=== PATIENT | female | born 1935 | race Caucasian/White ===

== ENCOUNTER 2017-03-03 19:04 | Emergency (ER) | payer MEDICARE, BC ==
[2017-03-03] MEDS ORDERED: Morphine 10 MG/ML Syringe IM ONE (20:09)
[2017-03-03] MEDS ORDERED: Morphine 10 MG/ML Syringe ONE (20:16)
[2017-03-03] MEDS ORDERED: Morphine 10 MG/ML Syringe IVPUSH ONE (20:32)
[2017-03-03] MEDS ORDERED: Acetaminophen/HYDROcodone 325-5 MG Tab ONE (21:30)
[2017-03-04 02:00] VITALS: BP 124/83
--- NOTE | 2017-03-04 08:36 | ER ---
HISTORY OF PRESENT ILLNESS: An 82-year-old lady, here with her . The patient fell in their kitchen and she sustained a left wrist injury. There was no bleeding, but they noticed an obvious deformity to the shape of the wrist. They wrapped her wrist is a towel with an ice pack and brought her in for evaluation. The patient states her pain is better now than it was before. She rates it at about a 5 on a 10 scale. She denies any other injuries. CURRENT MEDICATIONS: Reviewed. That include warfarin, sertraline, potassium, metoprolol, hydrochlorothiazide, and furosemide. ALLERGIES: NONE. OBJECTIVE: GENERAL APPEARANCE: The patient is awake and alert. She is in no significant distress. VITAL SIGNS: Reviewed. Blood pressure 122/83. EXTREMITIES: Examining the left wrist reveals an obvious deformity of the wrist. Skin is intact. There is some bruising on the palmar side of the wrist area, just proximal to the hand. The hand itself has good color. The patient can open and close the fingers of her hand. Hand is warm and dry. LAB AND X-RAY: X-rays were obtained, showing a distal radial fracture with significant angulation in a downward direction. There is a distal ulna fracture as well that appears to be displaced. DIAGNOSIS: Wrist fracture. TREATMENT PLAN: I did consult with Dr. Espinosa, orthopedic doctor from [place], who reviewed the x-rays with the following recommendation: The area should be reduced, after which it should be put in a splint, pain medicine should be given accordingly, and the patient needs to be taken to [facility] tomorrow morning to see Ortho for further evaluation and possible surgery. An IV was started. Morphine 5 mg was given IV. This made the patient a little bit sleepy, after which I injected 1% lidocaine locally, just proximal to the injured area, going all the way around the patient's distal forearm, injecting it subcutaneously. We then put the patient's hand in a finger trap, and with the patient's hand in the finger trap , I pulled down gently as well as applying pressure on the palmar side of the wrist and I was able to regain fairly good alignment. The patient had some discomfort during this procedure, but stated it felt better right after. We then put the patient in a gutter splint with her fingers still in the finger trap, after which we released it. We monitored the patient for about 15 minutes. The wrist maintained fairly good alignment, much better than when she came in. At this point, the patient will be discharged. She was put in a sling. She was given hydrocodone. She is to take 1 tablet every 4 hours as needed. They can continue icing her wrist as often as it is possible over the course of the night and she is to take her pain medicine regularly. She is to be n.p.o. after midnight other than a swallow of water to take her pain pill as well as her other pills in the morning. The patient is to not take her Coumadin at this time until her primary provider recommends that she resumes using Coumadin. She usually takes it in the evening. She has not taken it this evening. Color of the patient's fingers remains good, and they remain warm. There is no numbness present. The patient is here with family members. They will take her to [facility] [place] tomorrow morning to the [facility]. Dr. Espinosa has made arrangements for her to see his mid- level initially since he will not be there tomorrow, but arrangements will be made to take care of the patient through his mid-level. ANSELMO/GOVIND /[id number] MAICOL
--- NOTE | 2017-03-04 09:54 | CR ---
DATE OF SERVICE: 03/03/17 CLINICAL DATA: Injury. LEFT WRIST: There is a comminuted fracture through the distal radial diametaphysis. There is significant dorsal angulation of the distal fragments with respect to the proximal. There is also a comminuted, displaced fracture through the distal ulna with greater than 2 cm dorsal displacement of the distal fragments with respect to the proximal. There is diffuse osteopenia. There are osteoarthritic changes involving multiple joints. No other acute abnormalities. [id number] [facility]
== END 2017-03-03 21:40 | disposition home or self-care (01) ==
LOC: LB.ED 19:04
DX: S52.602A Unspecified fracture of lower end of left ulna, initial encounter for closed fracture (principal); S52.502A Unspecified fracture of the lower end of left radius, initial encounter for closed fracture; W19.XXXA Unspecified fall, initial encounter; Y92.89 Other specified places as the place of occurrence of the external cause
CPT/HCPCS: 25605; 73100; 96372; 99283; A9270; J2270; 29125

== ENCOUNTER 2018-11-11 19:59 | Emergency (ER) | payer MEDICARE ==
[2018-11-11 20:16] VITALS: BP 121/76
--- NOTE | 2018-11-11 20:17 | EDM.PDOC ---
ED HPI GENERAL MEDICAL PROBLEM - General Chief Complaint: Respiratory Problem Stated Complaint: COUGHING Time Seen by Provider: 11/11/18 20:00 Source of Information: Reports: Patient History Limitations: Reports: No Limitations - History of Present Illness INITIAL COMMENTS - FREE TEXT/NARRATIVE: According to patient she was seen last for cough and diagnosed with pneumonia by Dr. Paulson. She was started on Levaquin and Tessalon pearls. Pt is here as her cough as got worse. Has been getting clear sputum , but had some blood in it , hence got concerned. No fever or chills. No wheezing or shortness of breath. No loss of appetite. No abdominal pain. C/o chest pain along the costal margins from coughing. Onset Date: 11/09/18 Duration: Day(s): (3) Location: Reports: Chest Quality: Reports: Other (cough) Improves with: Reports: None Worsens with: Reports: None Associated Symptoms: Reports: Chest Pain, Cough. Denies: Confusion, Diaphoresis , Fever/Chills, Headaches, Nausea/Vomiting, Rash, Seizure, Shortness of Breath, Syncope, Weakness - Related Data Allergies Allergy/AdvReac Type Severity Reaction Status Date / Time No Known Allergies Allergy Verified 11/11/18 20:16 Home Meds: Home Meds Furosemide 03/03/17 [History] Metoprolol Tartrate 03/03/17 [History] Potassium Chloride 20 meq PO 03/03/17 [History] Sertraline HCl 03/03/17 [History] Warfarin Sodium [Jantoven] 03/03/17 [History] hydroCHLOROthiazide [Hydrochlorothiazide] 03/03/17 [History] Past Medical History HEENT History: Reports: Impaired Vision Cardiovascular History: Reports: Afib Respiratory History: Reports: None Gastrointestinal History: Reports: None Genitourinary History: Reports: None 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: Musculoskeletal History: Reports: Fracture Other Musculoskeletal History: L hip fx years ago, L THANIA in 2013 removed old hardware, 2016 R THANIA, R TKA 2006 Neurological History: Reports: Other (See Below) 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 Psychiatric History: Reports: None Endocrine/Metabolic History: Reports: None Hematologic History: Reports: None Immunologic History: Reports: None Oncologic (Cancer) History: Reports: None Dermatologic History: Reports: None - Past Surgical History Head Surgeries/Procedures: Reports: None HEENT Surgical History: Reports: Cataract Surgery Respiratory Surgical History: Reports: None GI Surgical History: Reports: None Female Surgical History: Reports: None Musculoskeletal Surgical History: Reports: Hip Replacement, Knee Replacement Social & Family History - Family History Family Medical History: Unobtainable - Caffeine Use Caffeine Use: Reports: Coffee, Soda Caffeine Use Comment: once a day ED ROS GENERAL - Review of Systems Review Of Systems: See Below Constitutional: Denies: Fever, Chills HEENT: Denies: Rhinitis, Throat Pain, Throat Swelling Respiratory: Reports: Pleuritic Chest Pain, Cough, Sputum, Hemoptysis. Denies: Shortness of Breath, Wheezing Cardiovascular: Denies: Chest Pain, Lightheadedness GI/Abdominal: Denies: Abdominal Pain, Diarrhea, Nausea, Vomiting Musculoskeletal: Denies: Joint Pain, Joint Swelling Skin: Denies: Pruritis, Rash, Erythema Neurological: Denies: Confusion, Dizziness, Headache, Numbness, Tingling ED EXAM, GENERAL - Physical Exam Exam: See Below Exam Limited By: No Limitations General Appearance: Alert, WD/WN, No Apparent Distress Eye Exam: Bilateral Eye: EOMI, PERRL Ears: Normal External Exam, Normal Canal, Hearing Grossly Normal, Normal TMs Ear Exam: Bilateral Ear: Auricle Normal, Canal Normal, TM normal Nose: Normal Inspection, Normal Mucosa, No Blood Throat/Mouth: Normal Inspection, Normal Lips, Normal Teeth, Normal Gums, Normal Oropharynx, Normal Voice, No Airway Compromise Head: Atraumatic, Normocephalic Neck: Normal Inspection, Supple, Non-Tender, Full Range of Motion Respiratory/Chest: No Respiratory Distress, Lungs Clear, Normal Breath Sounds, No Accessory Muscle Use, Chest Non-Tender Cardiovascular: Normal Peripheral Pulses, Regular Rate, Rhythm, No Edema, No Gallop, No JVD, No Murmur, No Rub Extremities: Normal Inspection, Normal Range of Motion, Non-Tender, Normal Capillary Refill, No Pedal Edema Neurological: Alert, Oriented, CN II-XII Intact, Normal Cognition, Normal Gait, Normal Reflexes, No Motor/Sensory Deficits Skin Exam: Warm, Intact Course - Vital Signs Text/Narrative:: Pt's clinical exam appears normal. Her SPO2 is 99% on room air. Her CBC is normal. Chest X-ray shows increased vascular markings, the left lower lobe infiltrate is clearing. Pt reassured that cough is normal reflux of the respiratory system to clear the sputum.The cough will get worse before it gets better. Pt advised to continue Levaquin and Tessalon pearls, which should help thin the secretions. Steam inhalations 2-3 times daily. Humidification of room air.Cough should gradually improve. Specks of blood in the sputum is normal, as long as there is not kei bloody sputum or coughing up blood clots. Followup in the clinic next week for recheck. Last Recorded V/S: Last Vital Signs Temp 98.2 F 11/11/18 20:06 Pulse 120 H 11/11/18 20:06 Resp 20 11/11/18 20:06 BP 121/76 11/11/18 20:06 Pulse Ox 99 11/11/18 20:06 - Orders/Labs/Meds Orders: Active Orders 24 hr Category Date Time Status Chest 2V [CR] Stat Exams 11/11/18 20:02 Ordered Labs: Laboratory Tests 11/11/18 Range/Units 20:14 WBC 5.9 D (4.0-11.0) K/uL RBC 3.88 (3.80-5.80) M/uL Hgb 11.7 (11.5-16.5) g/dL Hct 36.2 L (37.0-47.0) % MCV 93 (76-96) fL MCH 30.2 (27.0-32.0) pg MCHC 32.3 (31.0-35.0) g/dL RDW 13.1 (11.0-16.0) % Plt Count 192 D (150-500) K/uL MPV 9.9 (6.0-10.0) fL Neut % (Auto) 66.3 (45.0-70.0) % Lymph % (Auto) 22.9 (20.0-40.0) % Wilkin % (Auto) 9.3 (3.0-10.0) % Eos % (Auto) 1.3 (1.0-5.0) % Baso % (Auto) 0.2 (0.0-0.5) % Neut # (Auto) 3.94 (2.00-7.50) K/uL Lymph # (Auto) 1.36 L (1.50-4.00) K/uL Wilkin # (Auto) 0.55 (0.20-0.80) K/uL Eos # (Auto) 0.08 (0.04-0.40) K/uL Baso # (Auto) 0.01 L (0.02-0.10) K/uL Departure - Departure Time of Disposition: 20:30 Disposition: Home, Self-Care 01 Condition: Fair Clinical Impression: Left lower lobe pneumonia - Discharge Information *PRESCRIPTION DRUG MONITORING PROGRAM REVIEWED*: Not Applicable *COPY OF PRESCRIPTION DRUG MONITORING REPORT IN PATIENT YAMILE: Not Applicable Forms: ED Department Discharge Additional Instructions: Labs and Chest xray are looking much better. Continue the regime that Dr. Paulson gave you and finish the antibiotics. Using a steamer with menthol can help as well. Boil water 2-3 times a day, add some vicks vapor rub in the hot water and breath in the vapors. - Problem List & Annotations (1) Left lower lobe pneumonia SNOMED Code(s): 837707342 Code(s): J18.1 - LOBAR PNEUMONIA, UNSPECIFIED ORGANISM Status: Acute - Problem List Review Problem List Initiated/Reviewed/Updated: Yes - My Orders Last 24 Hours: My Active Orders 11/11/18 20:02 Chest 2V [CR] Stat - Assessment/Plan Last 24 Hours: My Active Orders 11/11/18 20:02 Chest 2V [CR] Stat Assessment:: Left lower lobe pneumonia- improving Plan: Pt's clinical exam appears normal. Her SPO2 is 99% on room air. Her CBC is normal. Chest X-ray shows increased vascular markings, the left lower lobe infiltrate is clearing. Pt reassured that cough is normal reflux of the respiratory system to clear the sputum.The cough will get worse before it gets better. Pt advised to continue Levaquin and Tessalon pearls, which should help thin the secretions. Steam inhalations 2-3 times daily. Humidification of room air.Cough should gradually improve. Specks of blood in the sputum is normal, as long as there is not kei bloody sputum or coughing up blood clots. Followup in the clinic next week for recheck.
--- NOTE | 2018-11-12 20:03 | CR ---
DATE OF SERVICE: 11/11/2018 CLINICAL DATA: Cough with hemoptysis. PA AND LATERAL CHEST: Comparison is made to a prior exam dated 11/08/2018. The nodular density in the left lung base on the prior exam has resolved. The exam is otherwise unchanged. No new abnormalities. No evidence of acute intrathoracic disease. [id number] [facility]
== END 2018-11-11 20:30 | disposition home or self-care (01) ==
LOC: LB.ED 19:59
DX: J18.1 Lobar pneumonia, unspecified organism (principal); I48.91 Unspecified atrial fibrillation; Z79.899 Other long term (current) drug therapy
CPT/HCPCS: 36415; 71046; 85025; 99285-25

== ENCOUNTER 2021-02-08 03:53 | Emergency (ER) | payer MEDICARE, BC ==
[2021-02-08 04:49] VITALS: BP 131/75; PULSE 58
--- NOTE | 2021-02-08 04:54 | EDM.PDOC ---
ED HPI GENERAL MEDICAL PROBLEM - General Chief Complaint: Gastrointestinal Problem Stated Complaint: DIARRHEA Time Seen by Provider: 02/08/21 04:53 Source of Information: Reports: Patient History Limitations: Reports: No Limitations - History of Present Illness INITIAL COMMENTS - FREE TEXT/NARRATIVE: patient presented to the ER due to persistent diarrhea for the last 1 day. reports a watery diarrhea every 2 hrs - loose and yellow in color no fever or chills no abdominal pain good appetite but she is concerned about getting dehydrated -since she is on diuretics as well and prone to dehydration Onset: Gradual Duration: Day(s): (4) Location: Reports: Abdomen - Related Data Allergies Allergy/AdvReac Type Severity Reaction Status Date / Time No Known Allergies Allergy Verified 02/08/21 04:46 Home Meds: Home Meds Furosemide 03/03/17 [History] Metoprolol Tartrate 03/03/17 [History] Potassium Chloride 20 meq PO 03/03/17 [History] Sertraline HCl 03/03/17 [History] Warfarin Sodium [Jantoven] 03/03/17 [History] hydroCHLOROthiazide [Hydrochlorothiazide] 03/03/17 [History] metroNIDAZOLE [Flagyl] 500 mg PO Q12H #6 tab 02/08/21 [Rx] Past Medical History HEENT History: Reports: Impaired Vision Cardiovascular History: Reports: Afib Respiratory History: Reports: None Gastrointestinal History: Reports: None Genitourinary History: Reports: None [employer]IE[employer] History: Reports: Musculoskeletal History: Reports: Fracture Other Musculoskeletal History: L hip fx years ago, L THANIA in 2013 removed old hardware, 2016 R THANIA, R TKA 2005 Neurological History: Reports: Other (See Below) 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 Psychiatric History: Reports: None Endocrine/Metabolic History: Reports: None Hematologic History: Reports: None Immunologic History: Reports: None Oncologic (Cancer) History: Reports: None Dermatologic History: Reports: None - Past Surgical History Head Surgeries/Procedures: Reports: None HEENT Surgical History: Reports: Cataract Surgery Respiratory Surgical History: Reports: None GI Surgical History: Reports: None Female Surgical History: Reports: None Musculoskeletal Surgical History: Reports: Hip Replacement, Knee Replacement Social & Family History - Family History Family Medical History: Unobtainable - Caffeine Use Caffeine Use: Reports: Coffee, Soda Caffeine Use Comment: once a day ED ROS GENERAL - Review of Systems Review Of Systems: See Below Constitutional: Reports: No Symptoms HEENT: Reports: No Symptoms Respiratory: Reports: No Symptoms Cardiovascular: Reports: No Symptoms GI/Abdominal: Reports: Diarrhea. Denies: Hematochezia, Melena Musculoskeletal: Reports: No Symptoms Skin: Reports: No Symptoms Neurological: Reports: No Symptoms ED EXAM, GI/ABD - Physical Exam Exam: See Below Exam Limited By: No Limitations General Appearance: Alert, WD/WN, No Apparent Distress Throat/Mouth: Normal Inspection Head: Atraumatic Respiratory/Chest: No Respiratory Distress, Lungs Clear Cardiovascular: Normal Peripheral Pulses, Regular Rate, Rhythm GI/Abdominal Exam: Normal Bowel Sounds, Soft, Non-Tender, Abnormal Bowel Sounds Neurological: Alert, Oriented, No Motor/Sensory Deficits Skin Exam: Warm, Dry, Intact Course - Vital Signs Last Recorded V/S: Last Vital Signs Temp 36.6 C 02/08/21 04:26 Pulse 58 L 02/08/21 04:26 Resp 18 02/08/21 04:26 BP 131/75 02/08/21 04:26 Pulse Ox 98 02/08/21 04:26 - Orders/Labs/Meds Orders: Active Orders 24 hr Category Date Time Status STOOL CULTURE Urgent Lab 02/08/21 04:53 Ordered Meds: Medications Discontinued Medications Generic Name Dose Route Start Last Admin Trade Name Morro PRN Reason Stop Dose Admin Sodium Chloride 1,000 mls @ 500 mls/hr 02/08/21 04:52 02/08/21 05:00 Normal Saline IV 02/08/21 06:51 500 mls/hr .BOLUS ONE Administration Metronidazole 500 mg 02/08/21 06:40 02/08/21 06:57 Metronidazole 500 Mg Tab PO 02/08/21 06:41 500 mg ONETIME ONE Administration Metronidazole Confirm 02/08/21 07:07 Metronidazole 500 Mg Tab Administered 02/08/21 07:08 Dose 500 mg .ROUTE .STK-MED ONE - Re-Assessments/Exams Free Text/Narrative Re-Assessment/Exam: vitals WNL IV fluids was started - one liter of NS was given PO flagyl was given as well reports feeling much better and energized compared to before had a large UOP tolerated PO intake was unable to provide a stool sample for analysis Departure - Departure Time of Disposition: 06:59 Disposition: Home, Self-Care 01 Condition: Good Clinical Impression: Diarrhea, Enteritis - Discharge Information *PRESCRIPTION DRUG MONITORING PROGRAM REVIEWED*: Not Applicable *COPY OF PRESCRIPTION DRUG MONITORING REPORT IN PATIENT YAMILE: Not Applicable Prescriptions: metroNIDAZOLE [Flagyl] 500 mg PO Q12H #6 tab Instructions: Viral Gastroenteritis, Adult, [id number], Dehydration, Elderly, [id number], Diarrhea, Adult, [id number] Referrals: PCP,Unknown [Primary Care Provider] - Forms: ED Department Discharge Additional Instructions: - increase fluids intake and gatorade - to avoid dehydration - do not take Imodium - follow up with your PCP as needed - return to the ER if symptoms got worse, dizziness or abdominal pain or fever Sepsis Event Note (ED) - Evaluation Sepsis Screening Result: No Definite Risk - Focused Exam Vital Signs: Vital Signs Temp Pulse Resp BP Pulse Ox 02/08/21 04:26 36.6 C 58 L 18 131/75 98 - Problem List & Annotations (1) Diarrhea SNOMED Code(s): 45217364 Code(s): R19.7 - DIARRHEA, UNSPECIFIED Status: Acute Priority: Low Current Visit: Yes (2) Enteritis SNOMED Code(s): 15989050 Code(s): K52.9 - NONINFECTIVE GASTROENTERITIS AND COLITIS, UNSPECIFIED Status: Acute Priority: Low Current Visit: Yes - Problem List Review Problem List Initiated/Reviewed/Updated: Yes - My Orders Last 24 Hours: My Active Orders 02/08/21 04:53 STOOL CULTURE Urgent - Assessment/Plan Last 24 Hours: My Active Orders 02/08/21 04:53 STOOL CULTURE Urgent Plan: - increase fluids intake and gatorade - to avoid dehydration - do not take Imodium - follow up with your PCP as needed - return to the ER if symptoms got worse, dizziness or abdominal pain or fever
[2021-02-08] MEDS: Sodium Chloride 0.9% 1,000 ML IV ONE (05:00)
[2021-02-08] MEDS: metroNIDAZOLE 500 MG Tab PO ONE (06:57)
[2021-02-08] MEDS ORDERED: metroNIDAZOLE 500 MG Tab ONE (07:07)
== END 2021-02-08 07:10 | disposition home or self-care (01) ==
LOC: LB.ED 03:53
DX: K52.9 Noninfective gastroenteritis and colitis, unspecified (principal); I48.91 Unspecified atrial fibrillation; Z79.01 Long term (current) use of anticoagulants
CPT/HCPCS: 99283; 99284; A9270-GY; J7030

== ENCOUNTER 2021-02-25 13:24 | Emergency (ER) | payer MEDICARE, BC ==
--- NOTE | 2021-02-25 15:01 | EDM.PDOC ---
ED HPI GENERAL MEDICAL PROBLEM - General Chief Complaint: General Stated Complaint: Diarrhea since 02-07-21. Time Seen by Provider: 02/25/21 13:45 Source of Information: Reports: Family (Daughter) - History of Present Illness INITIAL COMMENTS - FREE TEXT/NARRATIVE: Patient has had daily episodes of loose watery stools since February 07. She was seen here in the emergency room on February 08 and given IV fluids and a short course of Flagyl 500 mg twice daily for 3 days. She did follow-up in the clinic for ongoing issues with diarrhea and was put on a probiotic. A stool culture was done also at that time which was negative patient is here with her daughter who is concerned that this has been going on too long. the [place] the [place] but it was decided after having a couple of loose stools at the fair that she should come in for further evaluation. she states that she has more than couple loose stools a day but not several. Patient denies any other abdominal symptoms such as pain blood in the stool fever cramping cramping or nausea or vomiting. - Related Data Allergies Allergy/AdvReac Type Severity Reaction Status Date / Time No Known Allergies Allergy Verified 02/25/21 13:41 Home Meds: Home Meds Furosemide 1.5 tab PO QAM 03/03/17 [History] Metoprolol Tartrate 1 tab PO BID 03/03/17 [History] Potassium Chloride 20 meq PO BID 03/03/17 [History] Sertraline HCl 1 tab PO QPM 03/03/17 [History] Apixaban [Eliquis] 5 mg PO BID 02/25/21 [History] Cholecalciferol (Vitamin D3) [Vitamin D3] 2,000 unit PO DAILY 02/25/21 [History] Cyanocobalamin (Vitamin B-12) [Vitamin B-12] 1,000 mcg PO DAILY 02/25/21 [History] Donepezil HCl 10 mg PO QPM 02/25/21 [History] L.acidoph,Paracasei, B.lactis [Probiotic] 1 each PO DAILY 02/25/21 [History] Melatonin 5 mg PO BEDTIME 02/25/21 [History] Zinc Gluconate [Zinc] 30 mg PO DAILY 02/25/21 [History] Past Medical History HEENT History: Reports: Impaired Vision Cardiovascular History: Reports: Afib Respiratory History: Reports: None Gastrointestinal History: Reports: None Genitourinary History: Reports: None 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: Musculoskeletal History: Reports: Fracture Other Musculoskeletal History: L hip fx years ago, L THANIA in 2013 removed old hardware, 2016 R THANIA, R TKA 2006 Neurological History: Reports: Other (See Below) 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 Psychiatric History: Reports: None Endocrine/Metabolic History: Reports: None Hematologic History: Reports: None Immunologic History: Reports: None Oncologic (Cancer) History: Reports: None Dermatologic History: Reports: None - Infectious Disease History Infectious Disease History: Reports: Chicken Pox, Measles, Mumps, Pertussis (Whooping Cough) - Past Surgical History Head Surgeries/Procedures: Reports: None HEENT Surgical History: Reports: Cataract Surgery Cardiovascular Surgical History: Reports: None Respiratory Surgical History: Reports: None GI Surgical History: Reports: None Female Surgical History: Reports: None Musculoskeletal Surgical History: Reports: Hip Replacement, Knee Replacement Social & Family History - Family History Family Medical History: Unobtainable - Tobacco Use Tobacco Use Status *Q: Never Tobacco User Second Hand Smoke Exposure: No - Caffeine Use Caffeine Use: Reports: Coffee Caffeine Use Comment: once a day - Recreational Drug Use Recreational Drug Use: No ED ROS GENERAL - Review of Systems Review Of Systems: Comprehensive ROS is negative, except as noted in HPI. GI/Abdominal: Reports: Diarrhea (Without Abd pain, nausea, or vomiting.) ED EXAM, GENERAL - Physical Exam Exam: See Below General Appearance: Other (well groomed, and a good historian.) Course - Vital Signs Last Recorded V/S: Last Vital Signs Temp 97.8 F 02/25/21 13:49 Pulse 61 02/25/21 13:49 Resp 18 02/25/21 13:49 BP 128/73 02/25/21 13:49 Pulse Ox 95 02/25/21 13:49 - Orders/Labs/Meds Orders: Active Orders 24 hr Category Date Time Status STOOL CULTURE Stat Lab 02/25/21 13:59 Ordered Labs: Laboratory Tests 02/25/21 02/25/21 02/25/21 Range/Units 14:10 14:10 14:10 WBC 3.4 L D (4.0-11.0) K/uL RBC 3.93 (3.80-5.80) M/uL Hgb 12.2 (11.5-16.5) g/dL Hct 37.3 (37.0-47.0) % MCV 95 (76-96) fL MCH 31.0 (27.0-32.0) pg MCHC 32.7 (31.0-35.0) g/dL RDW 13.2 (11.0-16.0) % Plt Count 143 L (150-500) K/uL MPV 9.9 (6.0-10.0) fL Neut % (Auto) 65.4 (45.0-70.0) % Lymph % (Auto) 21.6 (20.0-40.0) % Imperial % (Auto) 10.9 H (3.0-10.0) % Eos % (Auto) 2.1 (1.0-5.0) % Baso % (Auto) 0.0 (0.0-0.5) % Neut # (Auto) 2.21 (2.00-7.50) K/uL Lymph # (Auto) 0.73 L (1.50-4.00) K/uL Imperial # (Auto) 0.37 (0.20-0.80) K/uL Eos # (Auto) 0.07 (0.04-0.40) K/uL Baso # (Auto) 0.00 L (0.02-0.10) K/uL PT 11.7 H D (9.0-11.5) sec INR 1.1 D (1.0-3.5) Sodium 145 (136-145) mmol/L Potassium 3.3 L (3.5-5.1) mmol/L Chloride 109 H (98-107) mmol/L Carbon Dioxide 26.3 (21.0-32.0) mmol/L Anion Gap 13.0 (5.0-15.0) mmol/L BUN 13 D (8-26) mg/dL Creatinine 0.98 (0.55-1.02) mg/dL Est Cr Clr Drug Dosing TNP Estimated GFR (MDRD) 54 L (>60) MLS/MIN BUN/Creatinine Ratio 13.3 (6-25) Glucose 98 (74-100) mg/dL Calcium 8.5 (8.5-10.1) mg/dL Departure - Departure Time of Disposition: 14:55 Disposition: Home, Self-Care 01 Condition: Good Clinical Impression: Hypokalemia due to excessive gastrointestinal loss of potassium Diarrhea Qualifiers: Diarrhea type: unspecified type Qualified Code(s): R19.7 - Diarrhea, unspecified - Discharge Information *PRESCRIPTION DRUG MONITORING PROGRAM REVIEWED*: Yes *COPY OF PRESCRIPTION DRUG MONITORING REPORT IN PATIENT YAMILE: Yes Instructions: Diarrhea, Adult, Hypokalemia Referrals: PCP,None [Primary Care Provider] - Additional Instructions: I advised the patient that her lab results are good. Kidney function is good. Potassium level slightly low at 3.3 which I believe is most likely due to her episodes of diarrhea. She does take Lasix and supplemental potassium every day. Advised the patient to start on Lomotil 1 tablet every 6 hours as needed for diarrhea episodes. I will give her 12 tablets. We will also get a stool culture after we obtain a stool sample which she does not need to do right now. She can bring it back in after it is obtained. Nursing staff will help her with this. Follow-up should be sooner as needed. End of dictation Sepsis Event Note (ED) - Evaluation Sepsis Screening Result: No Definite Risk - Focused Exam Vital Signs: Vital Signs Temp Pulse Resp BP Pulse Ox 02/25/21 13:49 97.8 F 61 18 128/73 95 - My Orders Last 24 Hours: My Active Orders 02/25/21 13:59 STOOL CULTURE Stat - Assessment/Plan Last 24 Hours: My Active Orders 02/25/21 13:59 STOOL CULTURE Stat
[2021-02-25 15:03] VITALS: BP 125/62; PULSE 55
== END 2021-02-25 15:30 | disposition home or self-care (01) ==
LOC: LB.ED 13:24
DX: R19.7 Diarrhea, unspecified (principal); E87.6 Hypokalemia; I48.91 Unspecified atrial fibrillation; Z79.01 Long term (current) use of anticoagulants
CPT/HCPCS: 36415; 80048; 85025; 85610; 99284

== ENCOUNTER 2021-03-09 05:58 | Emergency (ER) | payer MEDICARE, BC ==
[2021-03-09 06:10] VITALS: BP 112/66; PULSE 66
--- NOTE | 2021-03-09 07:09 | EDM.PDOC ---
ED HPI GENERAL MEDICAL PROBLEM - General Chief Complaint: Genitourinary Problem Stated Complaint: BLOOD IN URINE Time Seen by Provider: 03/09/21 06:35 Source of Information: Reports: Patient History Limitations: Reports: No Limitations - History of Present Illness INITIAL COMMENTS - FREE TEXT/NARRATIVE: patient presented to the ER with her daughter due to abnormal vaginal bleeding this morning. This is the 1st time this occurred. no abdominal pain. no trauma. patient is on Eliquis for blood thinning. no active bleeding at the moment. no n/v/d. no dizziness. Onset: Sudden - Related Data Allergies Allergy/AdvReac Type Severity Reaction Status Date / Time No Known Allergies Allergy Verified 03/09/21 06:11 Home Meds: Home Meds Furosemide 1.5 tab PO QAM 03/03/17 [History] Metoprolol Tartrate 1 tab PO BID 03/03/17 [History] Potassium Chloride 20 meq PO BID 03/03/17 [History] Sertraline HCl 1 tab PO QPM 03/03/17 [History] Apixaban [Eliquis] 5 mg PO BID 02/25/21 [History] Cholecalciferol (Vitamin D3) [Vitamin D3] 2,000 unit PO DAILY 02/25/21 [History] Cyanocobalamin (Vitamin B-12) [Vitamin B-12] 1,000 mcg PO DAILY 02/25/21 [History] Donepezil HCl 10 mg PO QPM 02/25/21 [History] L.acidoph,Paracasei, B.lactis [Probiotic] 1 each PO DAILY 02/25/21 [History] Melatonin 5 mg PO BEDTIME 02/25/21 [History] Zinc Gluconate [Zinc] 30 mg PO DAILY 02/25/21 [History] Past Medical History HEENT History: Reports: Impaired Vision Cardiovascular History: Reports: Afib Respiratory History: Reports: None Gastrointestinal History: Reports: None Genitourinary History: Reports: None 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 History: Reports: Fracture Other Musculoskeletal History: L hip fx years ago, L THANIA in 2013 removed old hardware, 2016 R THANIA, R TKA 2005 Neurological History: Reports: Other (See Below) 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 Psychiatric History: Reports: None Endocrine/Metabolic History: Reports: None Hematologic History: Reports: None Immunologic History: Reports: None Oncologic (Cancer) History: Reports: None Dermatologic History: Reports: None - Infectious Disease History Infectious Disease History: Reports: Chicken Pox, Measles, Mumps, Pertussis (Whooping Cough) - Past Surgical History Head Surgeries/Procedures: Reports: None HEENT Surgical History: Reports: Cataract Surgery Cardiovascular Surgical History: Reports: None Respiratory Surgical History: Reports: None GI Surgical History: Reports: None Female Surgical History: Reports: None Musculoskeletal Surgical History: Reports: Hip Replacement, Knee Replacement Social & Family History - Family History Family Medical History: Unobtainable - Caffeine Use Caffeine Use: Reports: Coffee Caffeine Use Comment: once a day - Recreational Drug Use Recreational Drug Use: No ED ROS GENERAL - Review of Systems Review Of Systems: See Below Constitutional: Reports: No Symptoms HEENT: Reports: No Symptoms Respiratory: Reports: No Symptoms Cardiovascular: Reports: No Symptoms GI/Abdominal: Reports: No Symptoms Musculoskeletal: Reports: No Symptoms Skin: Reports: No Symptoms Neurological: Reports: No Symptoms ED EXAM, RENAL/ - Physical Exam Exam: See Below Exam Limited By: No Limitations General Appearance: Alert, WD/WN, No Apparent Distress Eye Exam: Bilateral Eye: EOMI, PERRL Head: Atraumatic Respiratory/Chest: No Respiratory Distress Cardiovascular: Normal Peripheral Pulses GI/Abdominal: Normal Bowel Sounds, Soft, Non-Tender (Female) Exam: Other (vaginal exam was performed - no mass seen. no active bleeding. a small wound that seem to has healed on the right labia. also, a small bruise to the left labia. ). No: Vaginal Tears Neurological: Alert, Oriented Course - Vital Signs Last Recorded V/S: Last Vital Signs Temp 36.1 C 03/09/21 05:58 Pulse 66 03/09/21 05:58 Resp 18 03/09/21 05:58 BP 112/66 03/09/21 05:58 Pulse Ox 100 03/09/21 05:58 - Orders/Labs/Meds Orders: Active Orders 24 hr Category Date Time Status UA RFX MACHELLE AND CULT IF INDIC [URIN] Stat Lab 03/09/21 06:24 Ordered - Re-Assessments/Exams Free Text/Narrative Re-Assessment/Exam: vitals WNL UA was sent recommended to obtain an OBGYN consultation to rule out a malignant cause of this bleeding Departure - Departure Time of Disposition: 07:08 Disposition: Home, Self-Care 01 Condition: Good Clinical Impression: Abnormal vaginal bleeding - Discharge Information *PRESCRIPTION DRUG MONITORING PROGRAM REVIEWED*: Not Applicable *COPY OF PRESCRIPTION DRUG MONITORING REPORT IN PATIENT YAMILE: Not Applicable Instructions: Postmenopausal Bleeding, [id number] Forms: ED Department Discharge Additional Instructions: - recommend to follow up with your PCP for another check up or to get a referral to the OBGYN clinic - increase fluids intake - return to the ER if symptoms got worse or any concerns Sepsis Event Note (ED) - Evaluation Sepsis Screening Result: No Definite Risk - Focused Exam Vital Signs: Vital Signs Temp Pulse Resp BP Pulse Ox 03/09/21 05:58 36.1 C 66 18 112/66 100 - Problem List & Annotations (1) Abnormal vaginal bleeding SNOMED Code(s): 944526800 Code(s): N93.9 - ABNORMAL UTERINE AND VAGINAL BLEEDING, UNSPECIFIED Status: Acute Priority: Low - Problem List Review Problem List Initiated/Reviewed/Updated: Yes - My Orders Last 24 Hours: My Active Orders 03/09/21 06:24 UA RFX MACHELLE AND CULT IF INDIC [URIN] Stat - Assessment/Plan Last 24 Hours: My Active Orders 03/09/21 06:24 UA RFX MACHELLE AND CULT IF INDIC [URIN] Stat Plan: - recommend to follow up with your PCP for another check up or to get a referral to the OBGYN clinic - increase fluids intake - return to the ER if symptoms got worse or any concerns
== END 2021-03-09 07:13 | disposition home or self-care (01) ==
LOC: LB.ED 05:58
DX: N93.9 Abnormal uterine and vaginal bleeding, unspecified (principal); I48.91 Unspecified atrial fibrillation; Z79.01 Long term (current) use of anticoagulants; Z79.899 Other long term (current) drug therapy
CPT/HCPCS: 81001; 87086; 87088; 87186; 99284

== ENCOUNTER 2021-05-07 10:46 | Day surgery (SDC) | payer MEDICARE, BC ==
[2021-05-07] MEDS: Sodium Chloride 0.9% 1,000 ML IV SCH (11:44)
[2021-05-07] MEDS ORDERED: Propofol 200 MG/20 ML SDV ONE (13:30)
[2021-05-07 13:49] VITALS: BP 119/80; PULSE 62
[2021-05-07] MEDS: Metoclopramide 10 MG/2 ML SDV IV PRN (13:49)
--- NOTE | 2021-05-07 14:54 | OR ---
DATE OF OPERATION: 05/07/2021 SURGEON: Coleman Redman MD PREOPERATIVE DIAGNOSIS: Chronic diarrhea. POSTOPERATIVE DIAGNOSIS: Chronic diarrhea. PROCEDURE: Colonoscopy with mucosal biopsies. ANESTHESIA: MAC. ESTIMATED BLOOD LOSS: Minimal. COMPLICATIONS: None. INDICATION FOR THE PROCEDURE: The patient is an 86-year-old female who has had diarrhea for the past 4 months, multiple times per day. No blood. No abdominal cramping. She is here today for colonoscopy. Otherwise, the last colonoscopy was about 15 years ago, normal per the patient. DESCRIPTION OF PROCEDURE: Informed consent was obtained from the patient. The patient was taken to the operating room, placed on table in left lateral decubitus position. Monitored anesthesia care was administered. Digital rectal exam performed and was normal. Colonoscope was then advanced through the anus directed towards the cecum. Cecum was reached and identified by appendiceal orifice and ileocecal valve. Colonoscope then slowly withdrawn. She did have some mucosal hemorrhage in the proximal ascending colon. Some of this was biopsied. Otherwise, random biopsies carried out throughout the remainder of the colon looking for microscopic colitis, did have some mucosal irritation due to the scope throughout the sigmoid colon as well. A few scattered small diverticula noted in the descending and sigmoid colon. The rectum was otherwise unremarkable. Colonoscope was then slowly withdrawn. FINDINGS: Some mucosal hemorrhage in the ascending colon, otherwise mild diverticulosis in the sigmoid and descending colon. RECOMMENDATIONS: We will follow up on biopsies. If positive for microscopic colitis, we will need steroid treatment. If otherwise negative, we would recommend follow up with primary care for further eval and symptomatic treatment of diarrhea. LINDA/GOVIND /[id number]
== END 2021-05-07 15:15 | disposition home or self-care (01) ==
LOC: LB.SDS 10:46
PROVIDERS: ATTEND Surgery
DX: K52.832 Lymphocytic colitis (principal); K57.30 Diverticulosis of large intestine without perforation or abscess without bleeding; I48.91 Unspecified atrial fibrillation; Z79.899 Other long term (current) drug therapy
CPT/HCPCS: 88305; J2704; J2765; J7030

== ENCOUNTER 2022-03-25 13:09 | Emergency (ER) | payer MEDICARE ==
[2022-03-25 13:27] VITALS: BP 91/64; PULSE 87
== END 2022-03-25 14:09 | disposition home or self-care (01) ==
LOC: LB.ED 13:09
DX: S60.212A Contusion of left wrist, initial encounter (principal); Z79.899 Other long term (current) drug therapy; Z79.01 Long term (current) use of anticoagulants; W01.0XXA Fall on same level from slipping, tripping and stumbling without subsequent striking against object, initial encounter
CPT/HCPCS: 29125; 73110-LT; 99281; 99283-25

== ENCOUNTER 2022-10-04 10:21 | Emergency (ER) | payer MEDICARE ==
[2022-10-04 11:32] LABS: ESTIMATED GFR 58 mL/min (>60)
[2022-10-04 14:40] VITALS: BP 124/60; PULSE 80
== END 2022-10-04 12:00 | disposition home or self-care (01) ==
LOC: LB.ED 10:21
DX: M79.602 Pain in left arm (principal); Z79.01 Long term (current) use of anticoagulants
CPT/HCPCS: 36415; 71045; 73060-LT; 80048; 84484; 85025; 93005; 99284-25

== ENCOUNTER 2023-10-01 17:44 | Emergency (ER) | payer MEDICARE ==
[2023-10-01] MEDS: Lidocaine 1% with EPINEPHrine 1:100,000 20 ML MDV INJECT ONE (19:15)
[2023-10-01] MEDS: Diphtheria,Pertussis(Acell),Tetanus Vaccine 0.5 ML Syringe IM ONE (19:30)
[2023-10-01] MEDS: Bacitracin Oint 1 GM U/D Packet TOP ONE (19:31)
[2023-10-01 20:15] VITALS: BP 129/71; PULSE 70
== END 2023-10-01 19:35 | disposition home or self-care (01) ==
LOC: LB.ED 17:44
DX: S01.81XA Laceration without foreign body of other part of head, initial encounter (principal); S80.02XA Contusion of left knee, initial encounter; I48.91 Unspecified atrial fibrillation; Z79.01 Long term (current) use of anticoagulants; Z79.899 Other long term (current) drug therapy; W06.XXXA Fall from bed, initial encounter
CPT/HCPCS: 12001; 70450; 73562-LT; 90471; 90715; 99284-25

== ENCOUNTER 2024-02-11 20:13 | Observation (INO) | payer MEDICARE ==
[2024-02-11] MEDS: Morphine 4 MG/ML VIAL IVPUSH ONE (20:37)
[2024-02-11] MEDS: Ketorolac 30 MG/ML SDV IVPUSH ONE (23:01)
[2024-02-12] MEDS: Ketorolac 30 MG/ML SDV ONE (01:53)
[2024-02-12] MEDS: traMADol 50 MG Tab PO PRN (04:43)
[2024-02-12] MEDS: Cholecalciferol (Vitamin D3) 25 MCG Tab PO SCH (10:00)
[2024-02-12] MEDS: CYANOCOBALAMIN 1000 MCG PO SCH (10:01)
[2024-02-12] MEDS: Cyclobenzaprine 5 MG Tab PO SCH (10:01)
[2024-02-12] MEDS: POTASSIUM CHLORIDE 20 MEQ PO SCH (10:01)
[2024-02-12] MEDS: Zinc (Zinc Gluconate) 50 MG Tab PO SCH (10:01)
[2024-02-12] MEDS: PRIMIDONE 50 MG PO SCH (10:01)
[2024-02-12] MEDS: Furosemide 40 MG Tab *PT OWN MED PO SCH (10:01)
[2024-02-12] MEDS: Acetaminophen 325 MG Tab PO PRN (17:21)
[2024-02-12] MEDS: DONEPEZIL HCL 10 MG PO SCH (20:34)
[2024-02-13 07:59] LABS: HEMOGLOBIN 11.4 g/dL (11.5-16.5); MEAN CORPUSCULAR HEMOGLOBIN 30.3 pg (27.0-32.0); MEAN CORPUSCULAR HGB CONC 31.7 g/dL (31.0-35.0); MEAN PLATELET VOLUME 9.9 fL (6.0-10.0); RED BLOOD CELL COUNT 3.76 M/uL (3.80-5.80); RED CELL DISTRIBUTION WIDTH 13.1 % (11.0-16.0); WHITE BLOOD CELL COUNT,WBC 3.3 K/uL (4.0-11.0)
[2024-02-13] MEDS ORDERED: Cholecalciferol (Vitamin D3) 2,000 Unit Cap PO SCH (08:00)
[2024-02-13 08:21] LABS: A/G RATIO 1.5 (0.8-2.0); ALBUMIN 3.5 g/dL (3.4-5.0); ANION GAP 10.1 mmol/L (5.0-15.0); BILIRUBIN TOTAL 0.5 mg/dL (0.0-1.0); BUN/CREATININE RATIO 21.1 (6-25); CALCIUM 8.1 mg/dL (8.5-10.1); CARBON DIOXIDE,CO2 28.2 mmol/L (21.0-32.0); CREATININE 1.09 mg/dL (0.55-1.02); EST CRCL DRUG DOSING (CG) 35.99 mL/min; POTASSIUM,K 4.3 mmol/L (3.5-5.1); PROTEIN TOTAL,TP 5.8 g/dL (6.4-8.2)
[2024-02-13 08:59] LABS: APPEARANCE,URINE CLOUDY (CLEAR); BILIRUBIN,URINE NEGATIVE (NEGATIVE); COLOR,URINE YELLOW; GLUCOSE,URINE NEGATIVE (NEGATIVE); KETONES,URINE NEGATIVE (NEGATIVE); LEUKOCYTE ESTERASE,URINE MODERATE (NEGATIVE); NITRITE,URINE POSITIVE (NEGATIVE); OCCULT BLOOD,URINE TRACE-INTACT (NEGATIVE); PROTEIN,URINE NEGATIVE (NEGATIVE); UROBILINOGEN,URINE 0.2 E.U./dL (0.2-1.0)
[2024-02-13 09:03] LABS: BACTERIA,URINE MANY /HPF; RBC,URINE 0-5 /HPF; SQUAMOUS EPITHELIAL CELLS,UR OCCASIONAL /HPF; WBC,URINE 75-100 /HPF
[2024-02-13] MEDS: Sulfamethoxazole/Trimethoprim 800-160 MG Tab PO ONE (10:23)
[2024-02-13 12:48] VITALS: BP 109/53; PULSE 78
== END 2024-02-13 12:15 | disposition home or self-care (01) ==
LOC: LB.ED 20:13 → UNDOADMOB 02-12 00:05 → LB.MS 02-12 00:05
PROVIDERS: ADMIT Surgery; ATTEND Surgery
DX: M54.50 Low back pain, unspecified (principal); N39.0 Urinary tract infection, site not specified; Z79.899 Other long term (current) drug therapy
CPT/HCPCS: 36415; 72131; 80053; 81001; 85027; 87086; 93005; 96374; 96375; 97165; 99222; 99238; 99284; A9270; G0378; J1885; J2270

== ENCOUNTER 2025-03-22 21:30 | Inpatient (IN) | payer MEDICARE ==
[2025-03-22] MEDS: Ketorolac 15 MG/ML SDV IVPUSH ONE (22:00)
[2025-03-22 22:24] LABS: BASOPHILS ABSOLUTE AUTO 0.01 K/uL (0.02-0.10); BASOPHILS PERCENT AUTO 0.2 % (0.0-0.5); EOSINOPHILS ABSOLUTE AUTO 0.11 K/uL (0.04-0.40); EOSINOPHILS PERCENT AUTO 1.7 % (1.0-5.0); LYMPHOCYTES ABSOLUTE AUTO 0.94 K/uL (1.50-4.00); LYMPHOCYTES PERCENT AUTO 14.6 % (20.0-40.0); MEAN PLATELET VOLUME 9.9 fL (6.0-10.0); MONOCYTES ABSOLUTE AUTO 0.63 K/uL (0.20-0.80); MONOCYTES PERCENT AUTO 9.8 % (3.0-10.0); NEUTROPHILS ABSOLUTE AUTO 4.76 K/uL (2.00-7.50); NEUTROPHILS PERCENT AUTO 73.7 % (45.0-70.0); PLATELET COUNT,PLT 123 K/uL (150-500); RED BLOOD CELL COUNT 3.26 M/uL (3.80-5.80); RED CELL DISTRIBUTION WIDTH 12.5 % (11.0-16.0); WHITE BLOOD CELL COUNT,WBC 6.5 K/uL (4.0-11.0)
[2025-03-22 22:34] LABS: BLOOD UREA NITROGEN,BUN 35.0 mg/dL (8-26); CARBON DIOXIDE,CO2 31.3 mmol/L (21.0-32.0); CHLORIDE,CL 104.0 mmol/L (98-107); CREATININE 1.76 mg/dL (0.55-1.02); EST CRCL DRUG DOSING (CG) 19.5 mL/min; ESTIMATED GFR 27.0 mL/min (>60); GLUCOSE RANDOM 100.0 mg/dL (74-100); POTASSIUM,K 4.2 mmol/L (3.5-5.1); SODIUM,NA 143.0 mmol/L (136-145)
[2025-03-22] MEDS ORDERED: Magnesium Hydroxide 400 MG/5 ML Susp 30 ML Cup PO PRN (23:26)
[2025-03-23] MEDS: Ketorolac 15 MG/ML SDV IVPUSH SCH (07:58)
[2025-03-23] MEDS: Potassium Chloride 10 MEQ Tab.ER PO SCH (07:59)
[2025-03-23] MEDS: Propranolol 60 MG Cap.ER PO SCH (08:00)
[2025-03-23] MEDS: Cyanocobalamin (Vitamin B12) 1,000 MCG Tab PO SCH (08:00)
[2025-03-23] MEDS ORDERED: Non-Formulary Medication 1 Each (Levothyroxine Sodium [Levothyroxine Sodium] 50 MCG Capsul PO SCH (08:00)
[2025-03-23] MEDS: Ondansetron 4 MG/2 ML SDV IVPUSH PRN (08:36)
[2025-03-23] MEDS: Ketorolac 15 MG/ML SDV IVPUSH PRN (17:03)
[2025-03-24] MEDS: Sodium Chloride 0.9% 10 ML Syringe FLUSH PRN (01:09)
[2025-03-24 03:14] LABS: APPEARANCE,URINE CLEAR (CLEAR); GLUCOSE,URINE NEGATIVE (NEGATIVE); OCCULT BLOOD,URINE NEGATIVE (NEGATIVE)
[2025-03-24 03:19] LABS: SQUAMOUS EPITHELIAL CELLS,UR FEW /HPF; UROTHELIAL CELLS,URINE FEW /HPF
[2025-03-24 17:20] LABS: APPEARANCE,URINE SLIGHTLY CLOUDY (CLEAR); GLUCOSE,URINE NEGATIVE (NEGATIVE); OCCULT BLOOD,URINE MODERATE (NEGATIVE)
[2025-03-24 17:24] LABS: SQUAMOUS EPITHELIAL CELLS,UR FEW /HPF; UROTHELIAL CELLS,URINE OCCASIONAL /HPF
[2025-03-25 08:15] LABS: MEAN PLATELET VOLUME 10.3 fL (6.0-10.0); PLATELET COUNT,PLT 83.0 K/uL (150-500); RED BLOOD CELL COUNT 2.69 M/uL (3.80-5.80); RED CELL DISTRIBUTION WIDTH 12.6 % (11.0-16.0); WHITE BLOOD CELL COUNT,WBC 5.2 K/uL (4.0-11.0)
[2025-03-25 08:25] LABS: CARBON DIOXIDE,CO2 25.7 mmol/L (21.0-32.0); CHLORIDE,CL 102.0 mmol/L (98-107); CREATININE 2.77 mg/dL (0.55-1.02); EST CRCL DRUG DOSING (CG) 12.39 mL/min; ESTIMATED GFR 16.0 mL/min (>60); GLUCOSE RANDOM 101.0 mg/dL (74-100); SODIUM,NA 133.0 mmol/L (136-145)
[2025-03-25 08:43] LABS: BLOOD UREA NITROGEN,BUN 52.0 mg/dL (8-26); POTASSIUM,K 6.3 mmol/L (3.5-5.1)
[2025-03-25] MEDS: Calcium Carbonate/Vitamin D3 1500 MG-400 Units Tab PO SCH (11:00)
[2025-03-26 09:02] LABS: MEAN PLATELET VOLUME 9.7 fL (6.0-10.0); PLATELET COUNT,PLT 86.0 K/uL (150-500); RED BLOOD CELL COUNT 2.49 M/uL (3.80-5.80); RED CELL DISTRIBUTION WIDTH 12.7 % (11.0-16.0); WHITE BLOOD CELL COUNT,WBC 3.5 K/uL (4.0-11.0)
[2025-03-26 09:29] LABS: BLOOD UREA NITROGEN,BUN 40.0 mg/dL (8-26); CARBON DIOXIDE,CO2 23.7 mmol/L (21.0-32.0); CHLORIDE,CL 104.0 mmol/L (98-107); CREATININE 2.17 mg/dL (0.55-1.02); EST CRCL DRUG DOSING (CG) 15.81 mL/min; ESTIMATED GFR 21.0 mL/min (>60); GLUCOSE RANDOM 147.0 mg/dL (74-100); POTASSIUM,K 5.0 mmol/L (3.5-5.1); SODIUM,NA 137.0 mmol/L (136-145)
[2025-03-26] MEDS ORDERED: Polyethylene Glycol 3350 Powder 510 GM Bot PO SCH (13:30)
[2025-03-27 09:27] LABS: MEAN PLATELET VOLUME 9.6 fL (6.0-10.0); PLATELET COUNT,PLT 100.0 K/uL (150-500); RED BLOOD CELL COUNT 2.69 M/uL (3.80-5.80); RED CELL DISTRIBUTION WIDTH 13.1 % (11.0-16.0); WHITE BLOOD CELL COUNT,WBC 3.4 K/uL (4.0-11.0)
[2025-03-27 10:13] LABS: BLOOD UREA NITROGEN,BUN 30.0 mg/dL (8-26); CARBON DIOXIDE,CO2 24.4 mmol/L (21.0-32.0); CHLORIDE,CL 105.0 mmol/L (98-107); CREATININE 1.81 mg/dL (0.55-1.02); EST CRCL DRUG DOSING (CG) 18.96 mL/min; ESTIMATED GFR 26.0 mL/min (>60); GLUCOSE RANDOM 132.0 mg/dL (74-100); POTASSIUM,K 4.4 mmol/L (3.5-5.1); SODIUM,NA 138.0 mmol/L (136-145)
[2025-03-28 08:07] LABS: MEAN PLATELET VOLUME 9.2 fL (6.0-10.0); PLATELET COUNT,PLT 94.0 K/uL (150-500); RED BLOOD CELL COUNT 2.34 M/uL (3.80-5.80); RED CELL DISTRIBUTION WIDTH 13.0 % (11.0-16.0); WHITE BLOOD CELL COUNT,WBC 3.5 K/uL (4.0-11.0)
[2025-03-28 08:26] LABS: BLOOD UREA NITROGEN,BUN 29.0 mg/dL (8-26); CARBON DIOXIDE,CO2 24.2 mmol/L (21.0-32.0); CHLORIDE,CL 106.0 mmol/L (98-107); CREATININE 1.79 mg/dL (0.55-1.02); EST CRCL DRUG DOSING (CG) 19.17 mL/min; ESTIMATED GFR 27.0 mL/min (>60); GLUCOSE RANDOM 127.0 mg/dL (74-100); POTASSIUM,K 5.1 mmol/L (3.5-5.1); SODIUM,NA 138.0 mmol/L (136-145)
[2025-03-29 08:22] LABS: MEAN PLATELET VOLUME 9.6 fL (6.0-10.0); PLATELET COUNT,PLT 119.0 K/uL (150-500); RED BLOOD CELL COUNT 2.63 M/uL (3.80-5.80); RED CELL DISTRIBUTION WIDTH 13.7 % (11.0-16.0); WHITE BLOOD CELL COUNT,WBC 4.3 K/uL (4.0-11.0)
[2025-03-29 08:38] LABS: BLOOD UREA NITROGEN,BUN 26.0 mg/dL (8-26); CARBON DIOXIDE,CO2 24.3 mmol/L (21.0-32.0); CHLORIDE,CL 107.0 mmol/L (98-107); CREATININE 1.5 mg/dL (0.55-1.02); EST CRCL DRUG DOSING (CG) 22.88 mL/min; ESTIMATED GFR 33.0 mL/min (>60); GLUCOSE RANDOM 100.0 mg/dL (74-100); POTASSIUM,K 4.7 mmol/L (3.5-5.1); SODIUM,NA 139.0 mmol/L (136-145)
[2025-03-31 08:53] LABS: BLOOD UREA NITROGEN,BUN 23.0 mg/dL (8-26); CARBON DIOXIDE,CO2 23.7 mmol/L (21.0-32.0); CHLORIDE,CL 106.0 mmol/L (98-107); CREATININE 1.42 mg/dL (0.55-1.02); EST CRCL DRUG DOSING (CG) 24.17 mL/min; ESTIMATED GFR 35.0 mL/min (>60); GLUCOSE RANDOM 92.0 mg/dL (74-100); POTASSIUM,K 4.7 mmol/L (3.5-5.1); SODIUM,NA 137.0 mmol/L (136-145)
[2025-04-02 07:47] VITALS: BP 101/51; PULSE 74
== END 2025-04-02 08:36 | disposition swing bed (61) | DRG 560 ==
LOC: LB.ED 21:30 → UNDOADMIN 23:21 → LB.MS 23:21
PROVIDERS: ADMIT Family Medicine; ATTEND Surgery
PROC: 30233N1 Transfusion of Nonautologous Red Blood Cells into Peripheral Vein, Percutaneous Approach (ICD-10-PCS; principal; 2025-03-22)
DX: M96.662 Fracture of femur following insertion of orthopedic implant, joint prosthesis, or bone plate, left leg (principal); N17.9 Acute kidney failure, unspecified; N39.0 Urinary tract infection, site not specified; R53.1 Weakness; Z66 Do not resuscitate; I48.0 Paroxysmal atrial fibrillation; E87.5 Hyperkalemia; D64.9 Anemia, unspecified; E86.0 Dehydration; H54.7 Unspecified visual loss; F03.90 Unspecified dementia, unspecified severity, without behavioral disturbance, psychotic disturbance, mood disturbance, and anxiety; Z79.01 Long term (current) use of anticoagulants; Z98.49 Cataract extraction status, unspecified eye; Z96.649 Presence of unspecified artificial hip joint; Z96.659 Presence of unspecified artificial knee joint; Z79.899 Other long term (current) drug therapy
CPT/HCPCS: 36415; 36430; 73502-LT; 80048; 81001; 81003; 85018; 85025; 85027; 86850; 86900; 86901; 86920; 86922; 87086; 93005; 96374; 97110-GP; 97116-GP; 97161-GP; 97165-GO; 97530-GO; 97530-GP; 97535-GO; 99222; 99231; 99232; 99284-25; A0425; A0429; A9270-GY; J1650; J1885; J2405; J2470; J7030; P9016

== ENCOUNTER 2025-04-02 08:08 | Inpatient (IN) | payer MEDICARE ==
[2025-04-02] MEDS ORDERED: Magnesium Hydroxide 400 MG/5 ML Susp 30 ML Cup PO PRN (10:27)
[2025-04-02] MEDS: Tuberculin, PPD 5 Units/0.1 ML 1 ML MDV IDERM SCH (19:28)
[2025-04-03] MEDS ORDERED: Non-Formulary Medication 1 Each (Levothyroxine Sodium [Levothyroxine Sodium] 50 MCG Capsul PO SCH (07:00)
[2025-04-03] MEDS: Propranolol 60 MG Cap.ER PO SCH (08:36)
[2025-04-03] MEDS: Cyanocobalamin (Vitamin B12) 1,000 MCG Tab PO SCH (08:36)
[2025-04-03] MEDS: Calcium Carbonate/Vitamin D3 1500 MG-400 Units Tab PO SCH (08:36)
[2025-04-16] MEDS ORDERED: Tuberculin, PPD 5 Units/0.1 ML 1 ML MDV IDERM SCH (17:00)
[2025-04-17 10:33] VITALS: BP 117/55; PULSE 86
== END 2025-04-17 10:25 | disposition home or self-care (01) | DRG 948 ==
LOC: LB.MS 08:30 → UNDOADMIN 08:34 → LB.MS 08:34
PROVIDERS: ADMIT Physician Assistant; ATTEND Physician Assistant
DX: R53.81 Other malaise (principal); Z66 Do not resuscitate; H54.7 Unspecified visual loss; F03.90 Unspecified dementia, unspecified severity, without behavioral disturbance, psychotic disturbance, mood disturbance, and anxiety; Z98.49 Cataract extraction status, unspecified eye; Z79.01 Long term (current) use of anticoagulants; Z79.899 Other long term (current) drug therapy; Z96.659 Presence of unspecified artificial knee joint; Z96.649 Presence of unspecified artificial hip joint
CPT/HCPCS: 86580; 97110-GP; 97530-GO; 97530-GP; 97535-GO; 99304; 99307; 99315; A9270-GY

== ENCOUNTER 2025-04-19 12:02 | Inpatient (IN) | payer MEDICARE ==
[2025-04-19] MEDS ORDERED: Sodium Chloride 0.9% 10 ML Syringe FLUSH PRN (12:36)
[2025-04-19 13:11] LABS: MEAN PLATELET VOLUME 8.9 fL (6.0-10.0); PLATELET COUNT,PLT 127.0 K/uL (150-500); RED BLOOD CELL COUNT 2.97 M/uL (3.80-5.80); RED CELL DISTRIBUTION WIDTH 14.5 % (11.0-16.0); WHITE BLOOD CELL COUNT,WBC 3.3 K/uL (4.0-11.0)
[2025-04-19 13:38] LABS: BLOOD UREA NITROGEN,BUN 15.0 mg/dL (8-26); CARBON DIOXIDE,CO2 29.4 mmol/L (21.0-32.0); CHLORIDE,CL 109.0 mmol/L (98-107); CREATININE 1.35 mg/dL (0.55-1.02); EST CRCL DRUG DOSING (CG) 28.5 mL/min; ESTIMATED GFR 38.0 mL/min (>60); GLUCOSE RANDOM 88.0 mg/dL (74-100); PHOSPHORUS 3.3 mg/dL (2.5-4.9); POTASSIUM,K 4.3 mmol/L (3.5-5.1); PRO B-TYPE NATRIUR PEPT,BNPPRO 3909.0 pg/mL (0-450); SODIUM,NA 146.0 mmol/L (136-145); TROPONIN I HIGH SENSITIVITY 12.8 pg/ml (<=60.4)
[2025-04-19] MEDS: Furosemide 40 MG/4 ML VIAL IVPUSH ONE ×2 (14:21→16:45)
[2025-04-19] MEDS: Calcium Carbonate/Vitamin D3 1500 MG-400 Units Tab PO SCH (21:25)
[2025-04-20 07:49] VITALS: BP 96/53; PULSE 81
[2025-04-20] MEDS: Propranolol 60 MG Cap.ER PO SCH (08:00)
[2025-04-20] MEDS: Zinc (Zinc Gluconate) 50 MG Tab PO SCH (08:00)
[2025-04-20] MEDS: Potassium Chloride 20 MEQ Tab.ER PO SCH (08:00)
[2025-04-20] MEDS: Cyanocobalamin (Vitamin B12) 1,000 MCG Tab PO SCH (08:01)
== END 2025-04-20 11:25 | disposition home or self-care (01) | DRG 292 ==
LOC: LB.ED 12:02 → LB.MS 19:40
PROVIDERS: ADMIT Surgery; ATTEND Surgery
DX: I50.41 Acute combined systolic (congestive) and diastolic (congestive) heart failure (principal); J90 Pleural effusion, not elsewhere classified; M96.662 Fracture of femur following insertion of orthopedic implant, joint prosthesis, or bone plate, left leg; I48.0 Paroxysmal atrial fibrillation; H54.7 Unspecified visual loss; G30.9 Alzheimer's disease, unspecified; R09.02 Hypoxemia; N18.9 Chronic kidney disease, unspecified; F02.80 Dementia in other diseases classified elsewhere, unspecified severity, without behavioral disturbance, psychotic disturbance, mood disturbance, and anxiety; Z96.659 Presence of unspecified artificial knee joint; Z96.649 Presence of unspecified artificial hip joint; Z79.01 Long term (current) use of anticoagulants; Z79.82 Long term (current) use of aspirin; Z98.49 Cataract extraction status, unspecified eye; Z79.899 Other long term (current) drug therapy
CPT/HCPCS: 36415; 51702; 71045; 80048; 83735; 83880; 84100; 84484; 85027; 86140; 93010; 96374; 96376; 99222; 99238; 99285; 99285-25; A9270-GY; J1938